=== PATIENT | male | born 1940 | race Caucasian/White ===

== ENCOUNTER 2017-11-16 06:15 | Day surgery (SDC) | payer MEDICARE, BC ==
[~2017-11-16 06:15] MED LIST: Dextrose 5%-0.45% NaCl 1,000 ML IV SCH; Midazolam 1 MG/ML 2 ML SDV ONE; Sodium Chloride 0.9% 10 ML Syringe FLUSH PRN
[2017-11-16] MEDS ORDERED: fentaNYL 100 MCG/2 ML SDV IV ONE ×3 (06:16→07:37)
[2017-11-16] MEDS ORDERED: fentaNYL 100 MCG/2 ML SDV ONE (06:16)
[2017-11-16] MEDS ORDERED: Midazolam 1 MG/ML 2 ML SDV IV ONE ×6 (06:16→07:45)
--- NOTE | 2017-11-16 08:48 | OR ---
DATE: 11/16/2017 PROCEDURE: Total colonoscopy, NBI, and APC hemostasis therapy. INSTRUMENT USED: CF-H180AL Olympus video colonoscope. ERBE argon plasma registered dental assistant rda. PREMEDICATIONS: Fentanyl 100 mcg intravenous, Versed 4 mg intravenous. Nasal O2 cannula. The procedure was done under pulse oximetry, BP recording, and monitor technician. INDICATION: Screening colonoscopic examination is done for detection of any polypoid lesions and removal, endoscopic hemostasis therapy if needed. Initial rectal exam showed BPH. Rigid anoscopy was normal. DESCRIPTION OF PROCEDURE: The colonoscope was passed with ease up to the ileocecal area, photographs were taken of the cecum, showing angiodysplasia without bleeding from it, NBI views were obtained, APC therapy was applied, photographs were taken of the cecum before and after the APC therapy, NBI views were obtained of angiodysplasia. No bleeding was noted from any of the visualized areas at the commencement of the examination. No stricture. No polyp or tumor mass identified. No evidence of diffuse inflammatory bowel disease in the form of friability, contact bleeding, or ulcerations. Probing the proximal sides of folds and flexures, using adequate distention and clearing up the stool material, withdrawal of the scope was made, cecum to rectum time over 6 minutes. No bleeding was noted from any of the visualized areas at the completion of examination. IMPRESSION: Cecal angiodysplasia. The patient tolerated the procedure well. [facility] /[id number]
== END 2017-11-16 10:03 | disposition home or self-care (01) ==
LOC: DL.ENDO 06:15
PROVIDERS: ATTEND Internal Medicine Gastroenterology
DX: Z12.11 Encounter for screening for malignant neoplasm of colon (principal); K55.20 Angiodysplasia of colon without hemorrhage
CPT/HCPCS: 45382; J2250; J3010; J7042

== ENCOUNTER 2022-04-19 01:38 | Inpatient (IN) | payer MEDICARE, BC ==
[2022-04-19] MEDS: Sodium Chloride 0.9% 10 ML Syringe FLUSH PRN (02:21)
[2022-04-19 03:07] LABS: ANION GAP 13.1 mEq/L (7-13)
[2022-04-19] MEDS ORDERED: Potassium Chloride 10 MEQ Tab.ER PO ONE ×2 (03:11→17:30)
[2022-04-19] MEDS ORDERED: Sodium Chloride 0.9% 1,000 ML IV ONE ×2 (03:11→04:26)
[2022-04-19] MEDS ORDERED: Albuterol/Ipratropium 3.0-0.5 MG/3 ML Neb Soln NEB PRN (06:37)
[2022-04-19] MEDS ORDERED: Polyethylene Glycol 3350 Powder 17 GM Packet PO PRN (06:37)
[2022-04-19] MEDS ORDERED: Ondansetron 4 MG/2 ML SDV IVPUSH PRN (06:37)
[2022-04-19] MEDS ORDERED: Docusate Sodium 100 MG Cap PO PRN (06:37)
[2022-04-19] MEDS ORDERED: Magnesium Hydroxide 400 MG/5 ML Susp 30 ML Cup PO PRN (06:37)
[2022-04-19] MEDS ORDERED: HYDROmorphone 0.5 MG/0.5 ML Syringe IVPUSH PRN (06:37)
[2022-04-19] MEDS ORDERED: Acetaminophen/HYDROcodone 325-5 MG Tab PO PRN (06:37)
[2022-04-19] MEDS ORDERED: Bisacodyl 5 MG Tab PO PRN (06:37)
[2022-04-19 10:10] LABS: ANION GAP 10.3 mEq/L (7-13)
[2022-04-19] MEDS: Acetaminophen 325 MG Tab PO PRN (13:50)
[2022-04-19] MEDS: Sodium Chloride 0.9% 1,000 ML IV SCH (13:52)
[2022-04-19] MEDS ORDERED: Acetaminophen 500 MG Tab PO PRN (16:56)
[2022-04-19] MEDS ORDERED: Lidocaine 5% 700 MG Patch TOP ONE (16:59)
[2022-04-19] MEDS ORDERED: CYANOCOBALAMIN 500 MCG PO SCH (17:00)
[2022-04-19] MEDS ORDERED: Ziprasidone Mesylate 20 MG Vial IM PRN (21:05)
[2022-04-19] MEDS ORDERED: Water For Injection, Sterile 10 ML ONE (21:41)
[2022-04-20] MEDS: Acetaminophen 325 MG Tab PO PRN ×2 (00:32→20:43)
[2022-04-20] MEDS ORDERED: Potassium Chloride 10 MEQ Tab.ER PO ONE (04:09)
[2022-04-20 07:44] LABS: ANION GAP 12.6 mEq/L (7-13)
[2022-04-20] MEDS: Lidocaine 5% 700 MG Patch TOP SCH ×2 (10:06→20:44)
[2022-04-20] MEDS: Multivitamin Tab PO SCH (10:07)
[2022-04-20] MEDS: Sodium Chloride 0.9% 1,000 ML IV SCH (10:14)
[2022-04-20] MEDS ORDERED: Melatonin 3 MG Tab PO PRN ×2 (11:50→16:59)
[2022-04-20] MEDS ORDERED: Sertraline 50 MG Tab PO SCH (12:00)
[2022-04-20] MEDS: Sertraline 50 MG Tab PO SCH (14:50)
[2022-04-20] MEDS: Sodium Chloride 0.9% 10 ML Syringe FLUSH PRN ×2 (20:48→20:49)
[2022-04-20] MEDS ORDERED: Donepezil 10 MG Tab PO SCH (21:00)
[2022-04-21 08:25] LABS: ANION GAP 8.9 mEq/L (7-13)
[2022-04-21] MEDS ORDERED: Cholecalciferol (Vitamin D3) 25 MCG Tab PO SCH (09:00)
[2022-04-21] MEDS ORDERED: Non-Formulary Medication 1 Each (Solifenacin [Vesicare] 5 MG Tablet) PO SCH (09:00)
[2022-04-21] MEDS ORDERED: Magnesium Sulfate/Water 2 GM in Premix Bag 1 BAG IV ONE (09:30)
[2022-04-21] MEDS: Sertraline 50 MG Tab PO SCH (10:09)
[2022-04-21] MEDS: Multivitamin Tab PO SCH (10:09)
== END 2022-04-21 19:22 | disposition home or self-care (01) | DRG 177 ==
LOC: DL.ED 01:38 → DL.MS 05:22
PROVIDERS: ADMIT Internal Medicine; ATTEND Internal Medicine
DX: U07.1 COVID-19 (principal); G93.41 Metabolic encephalopathy; N17.9 Acute kidney failure, unspecified; R53.1 Weakness; E86.0 Dehydration; I10 Essential (primary) hypertension; N40.0 Benign prostatic hyperplasia without lower urinary tract symptoms; H54.7 Unspecified visual loss; Z88.7 Allergy status to serum and vaccine; Z79.899 Other long term (current) drug therapy; R32 Unspecified urinary incontinence; F03.90 Unspecified dementia, unspecified severity, without behavioral disturbance, psychotic disturbance, mood disturbance, and anxiety; D50.9 Iron deficiency anemia, unspecified; D69.6 Thrombocytopenia, unspecified; E88.09 Other disorders of plasma-protein metabolism, not elsewhere classified; E83.42 Hypomagnesemia; R26.89 Other abnormalities of gait and mobility; E87.6 Hypokalemia; R73.9 Hyperglycemia, unspecified; H91.90 Unspecified hearing loss, unspecified ear; G89.29 Other chronic pain; M54.59 Other low back pain; M48.062 Spinal stenosis, lumbar region with neurogenic claudication; M19.90 Unspecified osteoarthritis, unspecified site; E53.8 Deficiency of other specified B group vitamins; E66.9 Obesity, unspecified; Z98.49 Cataract extraction status, unspecified eye; Z87.891 Personal history of nicotine dependence; Z66 Do not resuscitate; Z68.25 Body mass index [BMI] 25.0-25.9, adult; Z68.28 Body mass index [BMI] 28.0-28.9, adult
CPT/HCPCS: 36415; 71045; 80048; 80053; 81001; 82306; 83605; 83735; 84439; 84443; 85025; 86140; 87040; 87086; 93005; 93010; 94010; 96360; 96361; 97116-GP; 97161-GP; 97165-GO; 97530-GP; 99284; 99285-25; A9270-GY; J3475; J3486; J3490; J7030; U0002